=== PATIENT | female | born 1940 | race Native Hawaiian/Other Pacific Islander ===

== ENCOUNTER 2017-04-13 13:44 | Inpatient (IN) | payer MEDICAID ==
[~2017-04-13] VITALS: Ht 152.4 cm; Wt 59.3 kg
[2017-04-13] MEDS ORDERED: MIRALAX PO (13:55)
[2017-04-13] MEDS ORDERED: PHOSLOC PO (13:55)
[2017-04-13] MEDS ORDERED: LABE100 PO (13:55)
[2017-04-13] MEDS ORDERED: LEVO75 PO (13:55)
[2017-04-13] MEDS ORDERED: MEMA10TA11 PO (13:55)
[2017-04-13] MEDS ORDERED: INSLAN SQ ×2 (13:55)
[2017-04-13] MEDS ORDERED: LOSA50TA37 PO (13:55)
[2017-04-13] MEDS ORDERED: INSU100C14 SQ (13:55)
[2017-04-13] MEDS ORDERED: ATOR40TA28 PO (13:55)
[2017-04-13] MEDS ORDERED: VITAD1000 PO (13:55)
[2017-04-13] MEDS ORDERED: AMLO-511 PO (13:55)
[2017-04-13] MEDS ORDERED: LORA10TA7 PO (13:55)
[2017-04-13] MEDS ORDERED: SEVEC800 PO (13:55)
[2017-04-13 14:02] LABS: GLUCOSE,POINT OF CARE 310 MG/DL (70-110)
[2017-04-13 15:35] LABS: CALCIUM, TOTAL 9.3 mg/dL (8.8-10.5); CREATININE 12.14 mg/dL (0.60-1.30); POTASSIUM 3.1 mmol/L (3.5-5.1)
[2017-04-13 15:41] LABS: ALBUMIN 2.6 g/dL (3.4-5.0); BILIRUBIN,TOTAL 0.6 mg/dL (0.1-1.0)
[2017-04-13 15:52] LABS: BASOPHILS % (AUTO) 0.3 % (0.0-2.0); HEMATOCRIT 31.1 % (36-46); HEMOGLOBIN 10.6 g/dL (12.0-16.0); LYMPHOCYTES # (AUTO) 2.4 K/uL (1.0-4.8); LYMPHOCYTES % (AUTO) 17.3 % (22.0-44.0); MEAN CORPUSCULAR HEMOGLOBIN 33.1 pg (26.0-34.0); MEAN CORPUSCULAR VOLUME 97 fL (80-100); MONOCYTES # (AUTO) 0.8 K/uL (0.1-1.0); MONOCYTES % (AUTO) 5.6 % (2.0-9.0); NEUTROPHILS # (AUTO) 9.9 K/uL (1.8-7.7); NEUTROPHILS % (AUTO) 71.8 % (40.0-70.0); PLATELET COUNT (AUTO) 209 K/uL (150-450); RED CELL DISTRIBUTION WIDTH 16.2 % (11.5-14.5); WHITE BLOOD COUNT (AUTO) 13.7 K/uL (4.5-11.0)
[2017-04-13] MEDS ORDERED: 0.9% SODIUM CHLORIDE 10 ML SYRINGE IVP PRN (18:15)
[2017-04-13] MEDS ORDERED: ACETAMINOPHEN 325 MG TABLET PO PRN ×2 (18:15→21:00)
[2017-04-13] MEDS ORDERED: ONDANSETRON HCL 4 MG/2 ML VIAL IVP PRN ×2 (18:15→21:00)
[2017-04-13] MEDS ORDERED: LABE200T PO (18:16)
[2017-04-13 20:19] VITALS: BP 150/88
[2017-04-13] MEDS ORDERED: MORPHINE SULFATE 2 MG/ML SYRINGE IVP PRN (21:00)
[2017-04-13] MEDS ORDERED: ZOLPIDEM TARTRATE 5 MG TABLET PO PRN (21:00)
[2017-04-13] MEDS: LOSARTAN POTASSIUM 50 MG TABLET PO SCH (21:00)
[2017-04-13] MEDS ORDERED: BISACODYL 10 MG RECTAL RECTAL SUPPOSITORY PR PRN (21:00)
[2017-04-13] MEDS ORDERED: DEXTROSE 50%-WATER 25 GM/50 ML SYRINGE IVP PRN (21:00)
[2017-04-13] MEDS ORDERED: ALBUTEROL SULFATE 2.5 MG/0.5 ML NEB SOLUTION NEB PRN (21:00)
[2017-04-13] MEDS ORDERED: IPRATROPIUM BROMIDE 0.5 MG/2.5 ML NEB SOLUTION NEB PRN (21:00)
[2017-04-13] MEDS: INSULIN DETEMIR 100 UNITS/ML SQ SCH (21:00)
[2017-04-13] MEDS ORDERED: MAGNESIUM HYDROXIDE SUSPENSION 30 ML UDCUP PO PRN (21:00)
[2017-04-13] MEDS ORDERED: OxyCODONE HCL/ACETAMINOPHEN 5-325 MG TABLET PO PRN (21:00)
[2017-04-13 22:32] LABS: APPEARANCE,UNSPUN,BODY FLUID CLEAR (CLEAR); COLOR,BODY FLUID YELLOW (LT YELLOW)
[2017-04-13] MEDS ORDERED: INFLUENZA VIRUS VACCINE QVS 2017-18 (3YR+)/PF 60 MCG/0.5 ML SYRINGE IM ONE (22:45)
[2017-04-13] MEDS ORDERED: PNEUMOCOCCAL VACCINE POLYVALENT 0.5 ML VIAL [PPSV23] IM ONE (22:45)
[2017-04-13] MEDS: ATORVASTATIN CALCIUM 40 MG TABLET PO SCH (23:17)
[2017-04-13] MEDS: MEMANTINE HCL 10 MG TABLET PO SCH (23:17)
[2017-04-13] MEDS: LABETALOL HCL 200 MG TABLET PO SCH (23:17)
[2017-04-13 23:39] VITALS: BP 146/86
[2017-04-14 04:46] VITALS: BP 121/67
[2017-04-14] MEDS: INSULIN ASPART 100 UNITS/ML SQ PRN ×3 (05:49→22:00)
[2017-04-14] MEDS: LEVOTHYROXINE SODIUM 75 MCG TABLET PO SCH (07:05)
[2017-04-14 07:20] VITALS: BP 111/69
[2017-04-14 07:59] LABS: AMYLASE 58 U/L (25-115)
[2017-04-14] MEDS: SEVELAMER CARBONATE 800 MG TABLET PO SCH ×3 (08:00→18:44)
[2017-04-14] MEDS ORDERED: CALCIUM ACETATE 667 MG CAPSULE PO SCH (08:00)
[2017-04-14] MEDS: LOSARTAN POTASSIUM 50 MG TABLET PO SCH ×2 (08:50→21:44)
[2017-04-14] MEDS: LABETALOL HCL 200 MG TABLET PO SCH (08:50)
[2017-04-14] MEDS: MEMANTINE HCL 10 MG TABLET PO SCH ×2 (08:50→22:28)
[2017-04-14] MEDS: PANTOPRAZOLE SODIUM 40 MG DR TABLET PO SCH (08:51)
[2017-04-14] MEDS: CHOLECALCIFEROL (VIT D3) 2,000 UNITS TABLET PO SCH (08:51)
[2017-04-14] MEDS: INSULIN DETEMIR 100 UNITS/ML SQ SCH ×2 (08:53→22:01)
[2017-04-14] MEDS ORDERED: LORATADINE 10 MG TABLET PO SCH (09:00)
[2017-04-14] MEDS ORDERED: GENTAMICIN SULFATE 0.3% 3.5 GM OPHTHALMIC OINTMENT OU SCH (11:00)
[2017-04-14 11:06] VITALS: BP 117/72
[2017-04-14] MEDS: POTASSIUM CHLORIDE 10% 40 MEQ/30 ML LIQUID UDCUP PO SCH ×2 (12:30→21:44)
[2017-04-14] MEDS: ASPIRIN 81 MG CHEWABLE TABLET PO SCH (12:31)
[2017-04-14] MEDS: VITAMIN B COMP/VIT C/FOLIC ACID CAPSULE PO SCH (12:31)
[2017-04-14] MEDS: AmLODIPine BESYLATE 5 MG TABLET PO SCH (12:31)
[2017-04-14] MEDS: GENTAMICIN SULFATE 0.1% 15 GM OINTMENT TP SCH (12:32)
[2017-04-14 18:08] LABS: GLUCOSE,POINT OF CARE 149 MG/DL (70-110)
[2017-04-14 19:21] VITALS: BP 149/79
[2017-04-14 21:42] LABS: GLUCOSE,POINT OF CARE 100 MG/DL (70-110)
[2017-04-14] MEDS: LABETALOL HCL 100 MG TABLET PO SCH (21:44)
[2017-04-14] MEDS: ATORVASTATIN CALCIUM 40 MG TABLET PO SCH (21:44)
[2017-04-14] MEDS: HEPARIN SODIUM,PORCINE 5,000 UNITS/ML VIAL SQ SCH (21:45)
[2017-04-14 23:50] VITALS: BP 141/77
[2017-04-15 04:39] VITALS: BP 123/73
[2017-04-15] MEDS: LEVOTHYROXINE SODIUM 75 MCG TABLET PO SCH (05:42)
[2017-04-15 06:24] LABS: BASOPHILS % (AUTO) 0.4 % (0.0-2.0); EOSINOPHILS % (AUTO) 7.5 % (1.0-6.0); HEMATOCRIT 29.7 % (36-46); HEMOGLOBIN 10.2 g/dL (12.0-16.0); LYMPHOCYTES # (AUTO) 1.9 K/uL (1.0-4.8); LYMPHOCYTES % (AUTO) 17.2 % (22.0-44.0); MEAN CORPUSCULAR HEMOGLOBIN 33.6 pg (26.0-34.0); MEAN CORPUSCULAR HGB CONC 34.3 G/dL (31.0-37.0); MEAN CORPUSCULAR VOLUME 98 fL (80-100); MONOCYTES # (AUTO) 0.7 K/uL (0.1-1.0); NEUTROPHILS # (AUTO) 7.6 K/uL (1.8-7.7); NEUTROPHILS % (AUTO) 68.9 % (40.0-70.0); PLATELET COUNT (AUTO) 215 K/uL (150-450); RED BLOOD CELL COUNT(AUTO) 3.03 MIL/uL (4.00-5.20); RED CELL DISTRIBUTION WIDTH 16.3 % (11.5-14.5); WHITE BLOOD COUNT (AUTO) 11.1 K/uL (4.5-11.0)
[2017-04-15 06:56] LABS: CALCIUM, TOTAL 9.5 mg/dL (8.8-10.5); CREATININE 12.43 mg/dL (0.60-1.30); POTASSIUM 3.9 mmol/L (3.5-5.1)
[2017-04-15 07:10] LABS: HEMOGLOBIN A1C 7.4 % (4.5-6.2)
[2017-04-15 07:30] VITALS: BP 118/70
[2017-04-15 07:33] LABS: GLUCOSE COMMENT 1 Received Meds; GLUCOSE,POINT OF CARE 204 MG/DL (70-110)
[2017-04-15] MEDS: ASPIRIN 81 MG CHEWABLE TABLET PO SCH (08:32)
[2017-04-15] MEDS: SEVELAMER CARBONATE 800 MG TABLET PO SCH ×3 (08:32→17:15)
[2017-04-15] MEDS: LOSARTAN POTASSIUM 50 MG TABLET PO SCH ×2 (08:32→20:47)
[2017-04-15] MEDS: PANTOPRAZOLE SODIUM 40 MG DR TABLET PO SCH (08:33)
[2017-04-15] MEDS: VITAMIN B COMP/VIT C/FOLIC ACID CAPSULE PO SCH (08:33)
[2017-04-15] MEDS: LABETALOL HCL 100 MG TABLET PO SCH ×2 (08:33→20:47)
[2017-04-15] MEDS: GENTAMICIN SULFATE 0.1% 15 GM OINTMENT TP SCH (08:33)
[2017-04-15] MEDS: AmLODIPine BESYLATE 5 MG TABLET PO SCH (08:33)
[2017-04-15] MEDS: MEMANTINE HCL 10 MG TABLET PO SCH ×2 (08:33→20:47)
[2017-04-15] MEDS: HEPARIN SODIUM,PORCINE 5,000 UNITS/ML VIAL SQ SCH ×2 (08:33→20:47)
[2017-04-15] MEDS: POTASSIUM CHLORIDE 10% 40 MEQ/30 ML LIQUID UDCUP PO SCH (08:41)
[2017-04-15] MEDS: CHOLECALCIFEROL (VIT D3) 2,000 UNITS TABLET PO SCH (08:41)
[2017-04-15] MEDS: INSULIN DETEMIR 100 UNITS/ML SQ SCH ×2 (08:50→20:59)
[2017-04-15 09:37] LABS: GLUCOSE,POINT OF CARE 263 MG/DL (70-110)
[2017-04-15 11:11] VITALS: BP 146/74
[2017-04-15] MEDS: INSULIN ASPART 100 UNITS/ML SQ PRN ×3 (12:10→20:58)
[2017-04-15] MEDS ORDERED: EPOETIN ALFA 10,000 UNITS/ML VIAL SQ ONE (14:00)
[2017-04-15 15:18] VITALS: BP 138/76
[2017-04-15 19:30] VITALS: BP 153/80
[2017-04-15] MEDS: ATORVASTATIN CALCIUM 40 MG TABLET PO SCH (20:47)
[2017-04-16 00:02] VITALS: BP 145/75
[2017-04-16 05:09] VITALS: BP 146/69
[2017-04-16 05:28] LABS: GLUCOSE,POINT OF CARE 294 MG/DL (70-110)
[2017-04-16 05:28] LABS: GLUCOSE COMMENT 1 Received Meds; GLUCOSE,POINT OF CARE 213 MG/DL (70-110)
[2017-04-16] MEDS: LEVOTHYROXINE SODIUM 75 MCG TABLET PO SCH (05:40)
[2017-04-16 07:31] VITALS: BP 158/88
[2017-04-16 07:56] LABS: CALCIUM, TOTAL 8.9 mg/dL (8.8-10.5); CREATININE 12.24 mg/dL (0.60-1.30); POTASSIUM 4.8 mmol/L (3.5-5.1)
[2017-04-16] MEDS: SEVELAMER CARBONATE 800 MG TABLET PO SCH ×3 (08:26→17:20)
[2017-04-16] MEDS: PANTOPRAZOLE SODIUM 40 MG DR TABLET PO SCH (08:26)
[2017-04-16] MEDS: CHOLECALCIFEROL (VIT D3) 2,000 UNITS TABLET PO SCH (08:26)
[2017-04-16] MEDS: MEMANTINE HCL 10 MG TABLET PO SCH (08:26)
[2017-04-16] MEDS: ASPIRIN 81 MG CHEWABLE TABLET PO SCH (08:26)
[2017-04-16] MEDS: LOSARTAN POTASSIUM 50 MG TABLET PO SCH (08:26)
[2017-04-16] MEDS: AmLODIPine BESYLATE 5 MG TABLET PO SCH (08:26)
[2017-04-16] MEDS: HEPARIN SODIUM,PORCINE 5,000 UNITS/ML VIAL SQ SCH (08:27)
[2017-04-16] MEDS: LABETALOL HCL 100 MG TABLET PO SCH (08:27)
[2017-04-16] MEDS: GENTAMICIN SULFATE 0.1% 15 GM OINTMENT TP SCH (08:27)
[2017-04-16] MEDS: INSULIN DETEMIR 100 UNITS/ML SQ SCH (08:31)
[2017-04-16] MEDS: VITAMIN B COMP/VIT C/FOLIC ACID CAPSULE PO SCH (08:32)
[2017-04-16 11:23] VITALS: BP 132/75
[2017-04-16 11:59] LABS: GLUCOSE,POINT OF CARE 136 MG/DL (70-110)
[2017-04-16 11:59] LABS: GLUCOSE,POINT OF CARE 188 MG/DL (70-110)
[2017-04-16 11:59] LABS: GLUCOSE COMMENT 1 Juice/Food/D50 Given; GLUCOSE,POINT OF CARE 92 MG/DL (70-110)
[2017-04-16 11:59] LABS: GLUCOSE,POINT OF CARE 180 MG/DL (70-110)
[2017-04-16 11:59] LABS: GLUCOSE,POINT OF CARE 175 MG/DL (70-110)
[2017-04-16 11:59] LABS: GLUCOSE,POINT OF CARE 107 MG/DL (70-110)
[2017-04-16 11:59] LABS: GLUCOSE,POINT OF CARE 103 MG/DL (70-110)
[2017-04-16] MEDS: INSULIN ASPART 100 UNITS/ML SQ PRN (12:21)
[2017-04-16 15:28] VITALS: BP 143/77
[2017-04-16 19:47] LABS: GLUCOSE,POINT OF CARE 111 MG/DL (70-110)
== END 2017-04-16 18:40 | disposition home or self-care (01) | DRG 720 ==
LOC: EMS 13:45 → 5S 18:34
PROVIDERS: ADMIT Internal Medicine; ATTEND Internal Medicine
PROC: 5A1D70Z Performance of Urinary Filtration, Intermittent, Less than 6 Hours Per Day (ICD-10-PCS; principal; 2017-04-13)
PROC: 5A1D70Z Performance of Urinary Filtration, Intermittent, Less than 6 Hours Per Day (ICD-10-PCS; 2017-04-14)
PROC: 5A1D70Z Performance of Urinary Filtration, Intermittent, Less than 6 Hours Per Day (ICD-10-PCS; 2017-04-15)
DX: A41.9 Sepsis, unspecified organism (principal); E43 Unspecified severe protein-calorie malnutrition; N18.6 End stage renal disease; R18.8 Other ascites; K85.90 Acute pancreatitis without necrosis or infection, unspecified; E46 Unspecified protein-calorie malnutrition; I12.0 Hypertensive chronic kidney disease with stage 5 chronic kidney disease or end stage renal disease; F03.90 Unspecified dementia, unspecified severity, without behavioral disturbance, psychotic disturbance, mood disturbance, and anxiety; E11.22 Type 2 diabetes mellitus with diabetic chronic kidney disease; E87.1 Hypo-osmolality and hyponatremia; Z99.2 Dependence on renal dialysis; E11.65 Type 2 diabetes mellitus with hyperglycemia; E87.6 Hypokalemia; E55.9 Vitamin D deficiency, unspecified; E78.5 Hyperlipidemia, unspecified; D63.8 Anemia in other chronic diseases classified elsewhere; E03.9 Hypothyroidism, unspecified; E11.649 Type 2 diabetes mellitus with hypoglycemia without coma; E21.3 Hyperparathyroidism, unspecified; I70.0 Atherosclerosis of aorta; K29.70 Gastritis, unspecified, without bleeding; N28.1 Cyst of kidney, acquired; W19.XXXA Unspecified fall, initial encounter; Z79.4 Long term (current) use of insulin; Z90.49 Acquired absence of other specified parts of digestive tract; Z28.21 Immunization not carried out because of patient refusal
CPT/HCPCS: 74176; 82962; 83036; 87040; 87070; 87205; 89051; 90945; 99285; J0885; J1644